=== PATIENT | female | born 1970 | race Caucasian/White ===

== ENCOUNTER → 2022-10-15 | Outpatient (CLI) | payer SELFPAY ==
--- NOTE | 2022-10-15 14:29 | US_ITS ---
STUDY: ULTRASOUND BREAST - RIGHT REASON FOR EXAM: Female, 52 years old. Abnormal screening mammogram. TECHNIQUE: Axial and longitudinal images of the RIGHT breast were performed with a high resolution ultrasound transducer. # OF IMAGES: 31 COMPARISON: Comparison is made with prior mammogram done earlier in the day. FINDINGS: RIGHT Breast: The mammographic abnormality corresponds to a 7 mm x 4 mm x 2 mm hypoechoic solid nodule with central increased echotexture at the 8:00 position breast at 1 cm from nipple. This may represent a small lymph node although biopsy is recommended. US/Breast Limited Unilateral IMPRESSION: 7 mm x 4 mm x 2 mm hypoechoic solid nodule with central increased echotexture at the 8:00 position breast a 1 cm from the nipple. Biopsy recommended. ASSESSMENT CATEGORY: BIRADS Category 4: Suspicious - Biopsy Should Be Considered. A letter regarding these results will be sent to the patient by the facility within 30 days. Electronically Signed: Tiago Soler MD at 15:55 EDT ,
--- NOTE | 2022-10-15 14:29 | BI_ITS ---
MAMMOGRAPHY - BILATERAL DIAGNOSTIC REASON FOR EXAM: Female, 52 years old. Sharp pain of the right breast. PERTINENT HISTORY: TECHNIQUE: Digital bilateral breast jeb (3D mammographic acquisition) in the CC and MLO projections. 2-D mediolateral oblique (MLO) and craniocaudad (CC) views of both breasts were obtained. CAD: Full Field Digital Mammography with Computer Added Detection was performed. COMPARISON: No comparison mammograms available at this time. If any prior films become available, an addendum to this report can be generated. FINDINGS: Breast Composition: The breasts are extremely dense, which lowers the sensitivity of mammography. Questionable 1.5 cm x 1.9 cm nodule in the deep upper central portion of the right breast. Correlation with ultrasound is recommended. No other significant abnormalities are identified. BI/DIAG MAMM W/CAD, BILAT IMPRESSION: Possible 1.5 cm x 1.9 cm nodule in the deep upper central portion of the right breast. Correlation with ultrasound is recommended. ASSESSMENT CATEGORY: BIRADS Category 0: Incomplete. Need additional imaging evaluation. A letter regarding these results will be sent to the patient by the facility within 30 days. Approximately 10% of breast cancers are not detected by mammography. A normal mammogram should not delay biopsy of a clinically suspicious abnormality. Electronically Signed: Tiago Soler MD at 15:26 EDT ,
== END | disposition home or self-care (01) ==
LOC: OPBI 14:22
PROVIDERS: Visit Provider Registered Nurse
DX: N64.4 Mastodynia (principal)
CPT/HCPCS: 76642; 77062; 77066; G0279

== ENCOUNTER → 2022-11-12 | Outpatient (CLI) | payer SELFPAY ==
--- NOTE | 2022-11-12 13:22 | US_ITS ---
STUDY: ULTRASOUND BREAST - RIGHT REASON FOR EXAM: Female, 52 years old. Ultrasound-guided right breast biopsy. TECHNIQUE: Axial and longitudinal images of the RIGHT breast were performed with a high resolution ultrasound transducer. # OF IMAGES: 20 COMPARISON: Comparison is made with prior sonogram dated October 15, 2022. FINDINGS: RIGHT Breast: Under direct sonographic guidance, a decision perform multiple core biopsies of the 7 mm x 5 mm x 3 mm hypoechoic nodule at the 8:00 position of the breast at 1 cm from the nipple. US/US Breast Biopsy 1st Lesion IMPRESSION: Ultrasound-guided core biopsies of the hypoechoic nodule at the 8:00 position of the breast at 1 cm from nipple. ASSESSMENT CATEGORY: BIRADS Category 2: Benign. A letter regarding these results will be sent to the patient by the facility within 30 days. Electronically Signed: Tiago Soler MD at 14:42 EDT ,
--- NOTE | 2022-11-12 14:00 | BRBX_PTH ---
PATIENT: DAINA GAUTHIER LOC: [facility] U#:[id number] AGE/SX: 52/F ROOM: RE11/12/[address]: Dr. Aubree Rose MD : 1970 BED: DIS: 11/12/2022 SPEC #: [id number] RECD: 11/12/22 14:21 STATUS: EDEN RETaran #: [id number] LUIS: 11/12/22 14:[address]: Aubree Rose DEPT: SURGICAL PATHOLOGY RECD BY: Zaria Hi ENTERED: 11/13/22 10:14 SP TYPE: BREAST BX OTHR DR: No Primary Care Phys Tissues: Right breast, NOS Procedures: Surgery Specimen Level IV HEADER OPERATION: Right breast biopsy PRE-OP DIAGNOSIS: Right breast mass TISSUE SUBMITTED: Right breast 8 o?clock, 1 cm from nipple MICROSCOPIC DIAGNOSIS Right breast at 8 o?clock, biopsy: Non-proliferative fibrocystic change with hyalinized stroma. No evidence of malignancy. AM:scot 11/14/2022 MICROSCOPIC DESCRIPTION Slides are reviewed. GROSS DESCRIPTION Received in fixative is one container labeled with the patient's name and designated right breast. The specimen consists of multiple elongated fragments of bautista-yellow fibroadipose tissue mixed with blood clots that in aggregate measure 2.0 x 2.5 x 0.1 cm. The entire specimen is submitted in one cassette. / SJ:scot 11/13/2022 TC:5 CPT: 58946
--- NOTE | 2022-11-12 14:02 | PCM.OPRPT ---
Report of Operation Date of Procedure: 11/12/22 Pre-Operative Diagnosis: Right breast mass Post-Operative Diagnosis: Same Surgery/Procedure Performed:: Ultrasound-guided right breast mass biopsy Surgeon: Aubree Rose Type of Anesthesia: Local Specimen's removed: 1. Right breast mass 8:00 1 cm from the nipple Description of Procedure: Procedure: Right ultrasound-guided core biopsy Indications: 52 year-old female with hypoechoic nodule at 8:00 in the right breast 1 centimeters from the nipple. Risk benefits were discussed the patient and she elected to proceed with ultrasound guided core biopsy with clip placement Description of procedure: Patient was brought into the ultrasound room in the right breast was marked. A timeout was completed verifying correct patient, procedure, site, specially, prior to beginning procedure. The right breast was prepped and draped in usual sterile fashion and using local anesthesia was obtained with 1% lidocaine with epi. The lesion was located with the ultrasound. Small incision was made with 11 blade to introduced the mammotome through the skin. Under ultrasound guidance multiple core samples were obtained using then 13-gauge mammotome and sent in formalin for pathology. The mammotome mammostar clip was then deployed into the biopsy cavity under ultrasound guidance and a picture was taken. Upon completion procedure hemostasis was obtained and a Steri-Strip and OpSite were placed. Patient was then taken to the mammography suite for clip verification. The clip was verified. The patient tolerated the procedure well and was discharged from the breast imaging department good condition. Complications NONE
== END | disposition home or self-care (01) ==
PROVIDERS: Referring Provider Surgery; Visit Provider Surgery
DX: N63.13 Unspecified lump in the right breast, lower outer quadrant (principal)
CPT/HCPCS: 19083; 88305